=== PATIENT | male | born 1955 | race Caucasian/White ===

== ENCOUNTER 2018-09-12 07:05 | Day surgery (SDC) | payer MEDICAID ==
[2018-09-04 10:42] VITALS: BMI 28.4
[2018-09-12] MEDS ORDERED: Lidocaine/Epinephrine 1% 1:100000 10 ML IJ ONE (07:33)
[2018-09-12] MEDS ORDERED: Bupivacaine 0.25% 20 ML INJ IJ ONE (07:33)
[2018-09-12] MEDS ORDERED: ceFAZolin 1 gm in NS 2 GM/200 ML BAG IVPB ONE (07:33)
[2018-09-12] MEDS ORDERED: Phenylephrine 10 mg/ml Inj ONE (07:44)
[2018-09-12] MEDS ORDERED: Rocuronium 10 mg/ml (5 ml) ONE (07:44)
[2018-09-12] MEDS ORDERED: Midazolam 2 MG/2 ML VIAL ONE (07:44)
[2018-09-12] MEDS ORDERED: Propofol 10 mg/ml Inj (20 ML) ONE (07:44)
[2018-09-12] MEDS ORDERED: Bupivacaine Liposomal Inj 20 ml INFIL ONE (09:00)
[2018-09-12] MEDS ORDERED: Neostigmine 1:1000 (1 mg/ml) Inj ONE (09:40)
[2018-09-12] MEDS: HYDROmorphone 0.5 mg/0.5 ml ISec IVP PRN ×7 (10:13→11:20)
[2018-09-12] MEDS ORDERED: HYDROmorphone 0.5 mg/0.5 ml ISec ONE (10:13)
--- NOTE | 2018-09-12 10:14 | PCM.SURG1 ---
Surgeon's Initial Post Op Note - Surgeon's Notes Surgeon: Dr. Zachary Gamble Oil Gauger: Dr. Bee PGY4, Lyn TRIVEDI Type of Anesthesia: General Endo, Local Pre-Operative Diagnosis: umbilical hernia Operative Findings: omental fat containing umbilical hernia Post-Operative Diagnosis: same Operation Performed: robotic assisted laparoscopic umbilical hernia repair with mesh Specimen/Specimens Removed: none Estimated Blood Loss: EBL {In ML}: 5 Blood Products Given: N/A Drains Used: No Drains Post-Op Condition: Good Date of Surgery/Procedure: 09/12/18 Time of Surgery/Procedure: 10:14
[2018-09-12] MEDS ORDERED: Oxycodone/Acetaminophen 5/325 mg Tab PO PRN (10:15)
[2018-09-12 12:24] VITALS: BP 167/82; PULSE 82; RESP 18; TEMP 98; O2SAT 99
--- NOTE | 2018-09-18 10:38 | PCM.OP ---
Operative Report - Operative Report Date of Surgery/Procedure: 09/12/18 Time of Surgery/Procedure: 08:15 Surgeon: Zachary Gamble MD Training Coordinator: Mirian Bee DO (PGY-4 resident); FAROOQ Wilcox Anesthesia/Sedation: See main Pre-Operative Diagnosis: See main Post-Operative Diagnosis: See main Indication for Surgery: See main Operative Findings: See main Procedure/Operation Description: ANESTHESIA: General endotracheal; 1% lidocaine + 0.25% Marcaine 50/50-mix local anesthesia INDICATIONS FOR PROCEDURE: 63 year old male who presented to my office with an symptomatic umbilical hernia with incarcerated fat. Further details of HPI in clinical chart. I have reviewed the risks and benefits of laparoscopic/robotic umbilical hernia repairs in detail as documented in the clinic chart. Specifically, we have noted the risks of recurrence, mesh infection, bowel injury. He understands these risks and wished to proceed. The patient consented to the procedure following these discussions and prior to the operation. PROCEDURE PERFORMED 1) Laparoscopic, Robotic Assisted Umbilical Hernia Repair (Transabdominal preperitoneal, MENDEL procedure, Progrip mesh) OPERATIVE FINDINGS: 2.5cm wide fat containing umbilical hernia. Supra-umbilical rectus diastasis DESCRIPTION OF PROCEDURE: The patient was given a preoperative dose of Ancef 2g 20 minutes before the incision. The patient had voided immediately prior to being brought to operating room and no eldridge catheter was used. He was taken to the operating room and placed supine on the operating room table with both arms on padded armboard placed at patients side in neutral position. He was doubly strapped with safety belt on thighs and tape across sam. The bed was then flexed at the hip to allow increased distance between costal margin and ASIS. Following successful endotracheal intubation, abdominal hair removed with shaver done and upper body warming blanket placed to maintain body temperature. Sequential compression stockings placed for DVT prophylaxis. A time out was performed prior to incision. The abdomen was prepped and draped in sterile fashion. Abdominal entry was gained using an 8mm optically viewing trocar with A 5mm 0-degree laparoscope placed in [place] in the left upper quadrant. All layers of the abdominal wall were seen and peritoneal entry directly visualized. The abdomen was then insufflated with C02 pneumoperitoneum to 15mmhg. 5mm 0-degree laparoscope was then inserted and the abdomen was generally inspected. There were no signs of injury from initial entry and there was not found to be any additional signs of pathology. Moderate amount of omentum noted to be herniating into umbilical defect, without any bowel involvement. Two additional 8mm robot working ports were then placed under direct vision following injection of local anesthesia, 1 in the left lower abdom en and the other in lateral left mid-abdomen at the level of the umbilicus. Once these were inserted, the patient was placed in slight Trendelenburg. A face protecting foam was placed over the patient's face and the robot patient cart was docked to the patient. A 30-degree robotic camera was inserted in the left lateral mid-abdominal port. Robotic instruments were then inserted under direct visualization., a fenestrated bipoar grasper was placed in the left lower port, and monopolar curved scissors placed in left upper port. Hernia contents including omentum were reduced using a combination of blunt and electrocautery dissection. Next the hernia defect was measured and found to be 2.5cm in max width and additional widening of midline fascia noted in the supraumbilical region for aprroximately 2 cm cephalad. We next proceeded with creation of pre-peritoneal flap. The peritoneum incised 5cm lateral to lateral most edge of hernia defect and carries cephalad and caudad for approximately 12cm total, centered around hernia defect. Using a combination of blunt and electrocautery dissection we proceeded toward the hernia defect and created a flap approximately 5cm distal to contralateral edge of defect. The hernia was then dissected free from the pseudo sac and a 3cm peritoneal defect was closed with 2-0 v-lock suture in running fashion. Once this was completed, pneumoperitoneum was reduced to 10mmhg, the fascial defect was primarily closed using a running 0-vlock suture, incorporating bites of the pseudo sac to re-create the umbilicus with care taken not to include skin. This running suture also incorporated the plication of the rectus widening above the umbilicus for 2 cm. The linea alba was re-approximated without tension. Next a Parietex Progrip, self-adhering, mesh [id number] rectangular mesh introduced into the preperitoneal space. It was placed over the anterior abdominal wall, centered over the closed hernia defect, allowing for appropriate 5cm overlap of hernia defect. No fixation sutures were needed. The peritoneal flap was then closed using running 2-0 v-lock barbed suture in [place] fashion. The robot was then undocked from the patient and I scrubbed back in at bedside. Using the robotic camera, the abdomen was inspected and hemostatic. 30mL of local anesthesia injected under direct vision in pre- peritoneal space adjacent to port sites. The ports were then removed under direct vision and the abdomen desufflated. The skin incisions were closed using interrupted 4-0 Monocryl sutures then Dermabond applied to skin. The patient was extubated in the OR without incident and transferred to recovery in stable condition. Abdominal binder applied to patients abdomen. I was present throughout the entirety of the case. Sponge, needle and instrument counts were correct Estimated Blood Loss: 5ml Complications: none Specimen: none Discharge & Condition: See main
== END 2018-09-12 13:14 | disposition home or self-care (01) ==
LOC: C.SDS 07:05
PROVIDERS: ATTEND Surgery
DX: K42.9 Umbilical hernia without obstruction or gangrene (principal); M62.08 Separation of muscle (nontraumatic), other site; E11.9 Type 2 diabetes mellitus without complications; I10 Essential (primary) hypertension; E78.5 Hyperlipidemia, unspecified; N40.0 Benign prostatic hyperplasia without lower urinary tract symptoms; E55.9 Vitamin D deficiency, unspecified; Z79.4 Long term (current) use of insulin
CPT/HCPCS: 49652; 82948; C1781; J0690; J1170; J2001; J2250; J2370; J2405; J2704; J2710; J3010; S2900